=== PATIENT | female | born 1965 | race Two or more races ===

== ENCOUNTER 2017-09-13 17:05 | Emergency (ER) | payer OTHER ==
[~2017-09-13] VITALS: Ht 157.5 cm; Wt 59.0 kg
[2017-09-13 18:17] LABS: Basophils # (auto) 0 uL; Basophils % (auto) 0.2 % (0.0-2.0); Eosinophils # (auto) 0.1 uL; Eosinophils % (auto) 0.6 % (0.0-7.0); Hematocrit 47.2 % (36.0-46.0); Hemoglobin 15.9 g/dL (12.2-16.2); Lymphocytes # (auto) 0.5 uL; Lymphocytes % (auto) 5.1 % (10.0-50.0); Mean Corpuscular Hemoglobin 32.5 pg (28.0-32.0); Mean Corpuscular Hgb Conc. 33.7 g/dL (32.0-36.0); Mean Corpuscular Volume 96.4 fL (80.0-100.0); Monocytes # (auto) 0.5 uL; Monocytes % (auto) 4.5 % (0.0-12.0); Neutrophils # (auto) 9.1 uL; Neutrophils % (auto) 89.6 % (37.0-80.0); Platelet Count (auto) 314 10^3/uL (140-450); Red Cell Distribution Width 13.4 % (11.8-14.3); White Blood Cell 10.1 10^3/uL (4.4-10.8)
[2017-09-13 18:28] LABS: BUN/Creatinine Ratio 34.2; Calcium 9.1 mg/dL (8.5-10.1); Potassium 4.1 mmol/L (3.5-5.1)
[2017-09-13] MEDS ORDERED: LIDOCAINE VISCOUS 2% 15ML UD PO ONE (20:15)
[2017-09-13] MEDS ORDERED: DONNATAL 5ml ORAL Elix (BELLADONNA ALK-PHENOBARB) PO ONE (20:15)
[2017-09-13] MEDS ORDERED: ALUM & MAG HYDROX-SIMETH LIQ(MAALOX) 30 ML PO ONE (20:15)
[2017-09-13 21:16] LABS: Urine Bacteria NONE SEEN /hpf (None Seen); Urine Blood 1+ /uL (Negative); Urine Mucus FEW (None Seen); Urine Specific Gravity 1.026 (1.001-1.035); Urine WBC 10 /hpf (0 - 5)
[2017-09-13] MEDS ORDERED: metroNIDAZOLE 500 MG TAB PO ONE (23:00)
[2017-09-13] MEDS ORDERED: cefTRIAXone 1GM/10ml IVPUSH 10 ML IV ONE (23:00)
[2017-09-14 01:08] VITALS: BP 104/52
[2017-09-14] MEDS ORDERED: SODIUM CHLORIDE 0.9% 1,000 ML IV ONE (01:15)
== END 2017-09-14 01:19 | disposition home or self-care (01) ==
LOC: ER 17:08
DX: R10.13 Epigastric pain (principal); K52.9 Noninfective gastroenteritis and colitis, unspecified; R06.02 Shortness of breath
CPT/HCPCS: 36415; 74176; 80048; 81001; 81025; 82150; 83690; 85025; 86677; 96374; 99285; J7030

== ENCOUNTER 2018-04-29 12:04 | Emergency (ER) | payer OTHER ==
[~2018-04-29] VITALS: Ht 157.5 cm; Wt 59.0 kg
[2018-04-29] MEDS ORDERED: KETOROLAC TROMETH 60MG/2ML VIAL IM ONE (15:15)
[2018-04-29 16:29] VITALS: BP 103/61
== END 2018-04-29 16:53 | disposition home or self-care (01) ==
LOC: ER 12:05
DX: M25.572 Pain in left ankle and joints of left foot (principal); G89.29 Other chronic pain
CPT/HCPCS: 29515; 73610; 73630; 96372; 99284; J1885

== ENCOUNTER 2018-08-19 14:29 | Emergency (ER) | payer SELFPAY ==
[~2018-08-19] VITALS: Ht 157.5 cm; Wt 61.2 kg
[2018-08-19 16:00] VITALS: BP 137/69
[2018-08-19] MEDS ORDERED: IBUPROFEN 800 MG TAB PO ONE (16:45)
== END 2018-08-19 16:49 | disposition home or self-care (01) ==
LOC: ER 14:29
DX: S90.01XA Contusion of right ankle, initial encounter (principal); S80.01XA Contusion of right knee, initial encounter; W19.XXXA Unspecified fall, initial encounter; Y93.89 Activity, other specified; Y99.8 Other external cause status; Y92.89 Other specified places as the place of occurrence of the external cause
CPT/HCPCS: 73610